=== PATIENT | female | born 1965 | race Caucasian/White ===

== ENCOUNTER → 2016-06-15 | Outpatient (CLI) | payer BC ==
[~2016-06-15] MED LIST: ATV/1 PO; BUME1TAB PO; CZR25 PO; LEVO75TA5 PO; LPT40 PO; POTA-327 PO; PRT/20 PO; SYN75 PO; VITAMIN B3 PO
[2016-06-15 11:28] LABS: ALT/SGPT 131 U/L (12-78); BLOOD UREA NITROGEN 21 mg/dl (7-18); BUN/CREATININE RATIO 14.9 (10-20); CALCIUM 10.8 mg/dl (8.5-10.1); CARBON DIOXIDE 31 mmol/L (21-32); CHLORIDE 94 mmol/L (98-107); GLUCOSE 147 mg/dl (70-99); POTASSIUM 2.9 mmol/L (3.5-5.1); SODIUM 137 mmol/L (136-145)
[2016-06-15 11:31] LABS: ALB/GLOB RATIO 0.8 (0.9-2); ALKALINE PHOSPHATASE 105 U/L (45-117); AST/SGOT 96 U/L (15-37)
== END | disposition home or self-care (01) ==
LOC: C.LABBC 08:10
PROVIDERS: ATTEND Family Medicine
DX: E03.9 Hypothyroidism, unspecified (principal); I10 Essential (primary) hypertension

== ENCOUNTER → 2016-07-20 | Outpatient (CLI) | payer BC, OTHER ==
--- NOTE | 2016-07-20 08:23 | DIAGNOSTIC IMAGING REPORT ---
ABDOMINAL ULTRASOUND, RIGHT UPPER QUADRANT HISTORY: R74.0 Transaminitis. COMPARISON: Abdomen and pelvis CT 04/29/2014. FINDINGS: Pancreas: The pancreas demonstrates a normal echotexture. Liver: The liver is echogenic consistent with fatty change. Punctate calcifications within the left hepatic lobe, unchanged. Gallbladder: No gallbladder wall thickening. No gallstones. CBD: 5 mm. Right kidney: Echogenic medullary pyramids with moderate cortical renal thinning. IMPRESSION: 1. Normal gallbladder. No gallstones. 2. Hepatic steatosis. 3. Echogenic medullary pyramids within the kidneys with moderate cortical renal thinning. No hydronephrosis. Electronically signed by: Hieu Peterson M.D. 07/20/2016 8:21 AM Dictated Date/Time: 07/20/2016 8:19 AM
[2016-07-20 10:55] LABS: BASO % 0.3 %; BASO ABS # 0.03 K/uL (0-0.2); COMPLETE YES; EOS % 1.4 %; HEMATOCRIT 43.4 % (37-47); IG% 0.5 %; LYMPH % 15.3 %; MEAN CELL VOLUME 96.9 fL (80-100); MEAN CORPUSCULAR HEMOGLOBIN 34.6 pg (25-34); MEAN CORPUSCULAR HGB CONC 35.7 g/dl (32-36); MEAN PLATELET VOLUME 12.2 fL (7.4-10.4); MONO % 5.5 %; PLATELET COUNT 220 K/uL (130-400); RED BLOOD COUNT 4.48 M/uL (4.2-5.4); WHITE BLOOD COUNT 11.08 K/uL (4.8-10.8)
[2016-07-20 11:10] LABS: URINE APPEARANCE CLEAR (CLEAR); URINE BILIRUBIN NEG (NEG); URINE COLOR YELLOW; URINE EPITHELIAL CELL AUTO >30 /lpf (0-5); URINE NITRITE NEG (NEG); URINE SPECIFIC GRAVITY 1.013 (1.000-1.030); UROBILINOGEN NEG (NEG)
[2016-07-20 11:16] LABS: ALT/SGPT 98 U/L (12-78); BLOOD UREA NITROGEN 19 mg/dl (7-18); BUN/CREATININE RATIO 12.3 (10-20); CALCIUM 9.1 mg/dl (8.5-10.1); CARBON DIOXIDE 27 mmol/L (21-32); CHLORIDE 93 mmol/L (98-107); GLUCOSE 176 mg/dl (70-99); POTASSIUM 3.5 mmol/L (3.5-5.1); SODIUM 133 mmol/L (136-145)
[2016-07-20 11:18] LABS: MANUAL MICROSCOPIC REQUIRED? NO; REVIEW REQ? NO
[2016-07-20 11:19] LABS: ALB/GLOB RATIO 0.7 (0.9-2); ALKALINE PHOSPHATASE 102 U/L (45-117); AST/SGOT 82 U/L (15-37); FERRITIN 291.8 ng/ml (8.0-388.0); TOTAL IRON BINDING CAPACITY 361 mcg/dl (250-450)
[2016-07-20 11:27] LABS: URINE PROTIEN/CREAT RATIO 1.2 (0-0.2); URINE TOTAL PROTEIN 145.1 mg/dl (0-11.9)
[2016-07-20 11:38] LABS: ESTIMATED AVERAGE GLUCOSE 163 mg/dl; HA1C FLAG Normal (Normal)
== END | disposition home or self-care (01) ==
LOC: C.ULTRBC 07:21
PROVIDERS: ATTEND Family Medicine
DX: R74.0 Nonspecific elevation of levels of transaminase and lactic acid dehydrogenase [LDH] (principal); E11.9 Type 2 diabetes mellitus without complications; N17.9 Acute kidney failure, unspecified; E55.9 Vitamin D deficiency, unspecified; E83.52 Hypercalcemia; K76.0 Fatty (change of) liver, not elsewhere classified

== ENCOUNTER → 2017-05-27 | Outpatient (CLI) | payer BC, OTHER ==
--- NOTE | 2017-05-27 13:25 | DIAGNOSTIC IMAGING REPORT ---
LEFT LOWER EXTREMITY VENOUS DOPPLER CLINICAL HISTORY: Acute left leg pain. COMPARISON STUDY: No previous studies for comparison. TECHNIQUE: Sonography of the deep venous system of the left lower extremity was performed. Compression and augmentation were evaluated. FINDINGS: The left common femoral, superficial femoral and popliteal veins were compressible. Augmentation was normal. Flow was shown within the deep calf vessels. IMPRESSION: No evidence of deep venous thrombus within the left lower extremity. Electronically signed by: Bill Mcfadden M.D. 05/27/2017 1:23 PM Dictated Date/Time: 05/27/2017 1:23 PM
== END | disposition home or self-care (01) ==
LOC: C.ULTRBC 13:00
PROVIDERS: ATTEND Physician Assistant Medical
DX: M79.606 Pain in leg, unspecified (principal)

== ENCOUNTER → 2017-06-20 | Outpatient (CLI) | payer BC, OTHER ==
[2017-06-20 11:20] LABS: HEMOGLOBIN 16.4 g/dL (12.0-16.0); MEAN CELL VOLUME 98.5 fL (80-100); MEAN CORPUSCULAR HEMOGLOBIN 35.1 pg (25-34); MEAN CORPUSCULAR HGB CONC 35.7 g/dl (32-36); MEAN PLATELET VOLUME 12.2 fL (7.4-10.4); PLATELET COUNT 238 K/uL (130-400); RED CELL DISTRIBUTION WIDTH CV 12.9 % (11.5-14.5); RED CELL DISTRIBUTION WIDTH SD 46.1 fL (36.4-46.3); WHITE BLOOD COUNT 8.12 K/uL (4.8-10.8)
[2017-06-20 11:21] LABS: ALBUMIN 3.4 gm/dl (3.4-5.0); ALT/SGPT 100 U/L (12-78); AST/SGOT 81 U/L (15-37); BLOOD UREA NITROGEN 15 mg/dl (7-18); CALCIUM 9.9 mg/dl (8.5-10.1); CARBON DIOXIDE 30 mmol/L (21-32); GLUCOSE 160 mg/dl (70-99); POTASSIUM 3.1 mmol/L (3.5-5.1); SODIUM 138 mmol/L (136-145)
[2017-06-20 11:24] LABS: ALKALINE PHOSPHATASE 96 U/L (45-117); TOTAL PROTEIN 7.9 gm/dl (6.4-8.2)
[2017-06-20 11:33] LABS: HEMOGLOBIN A1C 8.6 % (4.5-5.6)
== END | disposition home or self-care (01) ==
LOC: C.LABBC 07:32
PROVIDERS: ATTEND Physician Assistant Medical
DX: E78.5 Hyperlipidemia, unspecified (principal); I12.9 Hypertensive chronic kidney disease with stage 1 through stage 4 chronic kidney disease, or unspecified chronic kidney disease; E11.22 Type 2 diabetes mellitus with diabetic chronic kidney disease; R74.0 Nonspecific elevation of levels of transaminase and lactic acid dehydrogenase [LDH]; N18.3 Chronic kidney disease, stage 3 (moderate); R80.9 Proteinuria, unspecified; R20.0 Anesthesia of skin

== ENCOUNTER → 2017-09-08 | Outpatient (CLI) | payer BC, OTHER | END | disposition home or self-care (01) | LOC: C.LABBC 11:43 | PROVIDERS: ATTEND Physician Assistant Medical | DX: R30.0 Dysuria (principal); N32.89 Other specified disorders of bladder; L29.8 Other pruritus ==

== ENCOUNTER → 2017-10-05 | Outpatient (CLI) | payer BC, OTHER ==
[2017-10-05 11:48] LABS: BLOOD UREA NITROGEN 17 mg/dl (7-18); CALCIUM 9.9 mg/dl (8.5-10.1); CARBON DIOXIDE 34 mmol/L (21-32); CREATININE 1.09 mg/dl (0.60-1.20); GLUCOSE 151 mg/dl (70-99); POTASSIUM 3.6 mmol/L (3.5-5.1); SODIUM 136 mmol/L (136-145)
[2017-10-05 11:57] LABS: HEMOGLOBIN A1C 6.2 % (4.5-5.6)
== END | disposition home or self-care (01) ==
LOC: C.LABBC 07:32
PROVIDERS: ATTEND Physician Assistant Medical
DX: R30.0 Dysuria (principal); N32.89 Other specified disorders of bladder; L29.8 Other pruritus; N76.0 Acute vaginitis; E87.6 Hypokalemia; E55.9 Vitamin D deficiency, unspecified; E03.9 Hypothyroidism, unspecified